=== PATIENT | male | born 1960 | race Caucasian/White ===

== ENCOUNTER 2018-12-19 10:43 | Inpatient (IN) | payer OTHER ==
[~2018-12-19] VITALS: Ht 180.3 cm; Wt 93.2 kg
[2018-12-19] MEDS ORDERED: normal saline 1000ML IV soln IVB ONE ×2 (11:20→12:15)
[2018-12-19 11:35] LABS: BASOPHILS % (AUTO) 0.3 % (0-1); HEMATOCRIT 51.3 % (42.0-52.0); HEMOGLOBIN 17.7 g/dl (14.0-17.9); LYMPHOCYTES # (AUTO) 0.4 X10'3 (1.1-4.8); LYMPHOCYTES % (AUTO) 7.3 % (21-51); MEAN CORPUSCULAR HEMOGLOBIN 31.4 PG (27.0-31.0); MEAN CORPUSCULAR HGB CONC 34.6 g/dL (33.0-36.5); MEAN CORPUSCULAR VOLUME 90.9 FL (78-98); MEAN PLATELET VOLUME 9.8 FL (7.4-10.4); MONOCYTES # (AUTO) 0.8 X10'3 (0-0.9); MONOCYTES % (AUTO) 16.1 % (2-12); NEUTROPHILS # (AUTO) 3.6 X10'3 (1.8-7.7); NEUTROPHILS % (AUTO) 75.3 % (42-75); PLATELET COUNT 227 X10'3 (140-440); RED BLOOD COUNT 5.64 X10'6 (4.70-6.10); RED CELL DISTRIBUTION WIDTH 13.4 % (11.5-14.5); WHITE BLOOD COUNT 4.8 X10'3 (4.5-11.0)
[2018-12-19] MEDS ORDERED: ondansetron/PF 4mg/2ml inj IV ONE (12:00)
[2018-12-19 12:05] LABS: ALANINE AMINOTRANSFERASE 65 U/L (12-78); ALBUMIN 3.3 G/DL (3.4-5.0); ALBUMIN/GLOBULIN RATIO 0.6 (1.1-1.5); ALKALINE PHOSPHATASE 109 IU/L (46-116); ANION GAP 14 (8-16); ASPARTATE AMINO TRANSFERASE 27 U/L (10-37); BILIRUBIN,TOTAL 0.6 MG/DL (0.1-1.0); BLOOD UREA NITROGEN 62 MG/DL (7-18); CALCIUM 9.4 MG/DL (8.5-10.1); CHLORIDE 91 MMOL/L (99-107); GLUCOSE 162 MG/DL (70-104); POTASSIUM 3.3 MMOL/L (3.5-5.1); SODIUM 134 MMOL/L (135-145); TOTAL CARBON DIOXIDE 28.7 MMOL/L (24-32); TOTAL PROTEIN 8.4 G/DL (6.4-8.2); eGFR 29 ML/MIN
[2018-12-19] MEDS ORDERED: potassium 10mEq/100ml NS w/LIDOcaine (10mg/bag) IV SCH (12:15)
[2018-12-19 12:27] LABS: TOTAL CELLS COUNTED 100
[2018-12-19 12:28] LABS: LARGE PLATELETS FEW; PLATELET ESTIMATE NORMAL
[2018-12-19 12:41] LABS: MAGNESIUM 2.2 MG/DL (1.5-2.4)
[2018-12-19] MEDS ORDERED: mag hydrox/Alum hydrox/simeth 30ml oral suspension PO PRN (12:50)
[2018-12-19] MEDS ORDERED: HYDROcodone/acetaminophen 5mg/325mg tablet PO PRN (12:50)
[2018-12-19] MEDS ORDERED: morphine 2 MG/ML inj. syringe IV PRN ×2 (12:50)
[2018-12-19] MEDS ORDERED: acetaminophen 325mg tablet PO PRN (12:50)
[2018-12-19] MEDS ORDERED: magnesium hydroxide 30ml (MOM) UD suspension PO PRN (12:50)
[2018-12-19] MEDS ORDERED: NO HOME MEDS (12:56)
[2018-12-19 13:26] LABS: CLARITY,URINE CLEAR (Clear); COLOR,URINE YELLOW (Yellow); GLUCOSE, URINE NEGATIVE (Neg); KETONES,URINE NEGATIVE (Neg); LEUKOCYTE ESTERASE ,URINE NEGATIVE (Neg); NITRITES, URINE NEGATIVE (Neg); OCCULT BLOOD,URINE NEGATIVE (Neg); PH,URINE 5.5 (4.8-8.0); PROTEIN,URINE NEGATIVE (Neg); UROBILINOGEN,URINE 0.2 E.U/dL (0.2-1.0)
[2018-12-19 13:30] LABS: UA COLLECTION TYPE CLN CATCH MIDSTREAM
[2018-12-19] MEDS: potassium Cl 10 mEq/100mL bag IV SCH ×2 (13:55→14:02)
[2018-12-19] MEDS: dextrose 5%-1/2 normal saline 1,000 ML IV SCH ×2 (14:03→22:14)
[2018-12-19 15:00] VITALS: BP 134/81
[2018-12-19] MEDS ORDERED: potassium Cl 10 mEq/100mL bag IV SCH (16:10)
[2018-12-19] MEDS ORDERED: normal saline 1000ml 1,000 ML IV ONE (17:00)
[2018-12-19 18:00] VITALS: BP 136/79
--- NOTE | 2018-12-19 18:00 | NUR ---
Patient in room [facility]. I have received report from JAYDEN Mackenzie and had the opportunity to ask questions and assume patient care.
--- NOTE | 2018-12-19 18:09 | NUR ---
Problems reprioritized. Patient report given, questions answered & plan of care reviewed with JAYDEN LATIF.
[2018-12-19] MEDS: diatr meglu/diatrizoate 30ml oral sol.-(3 dose) bottle PO SCH (21:57)
[2018-12-20] VITALS (16 sets, daily range): BP systolic 103–134; BP diastolic 65–87
[2018-12-20] MEDS: dextrose 5%-1/2 normal saline 1,000 ML IV SCH ×4 (04:13→23:34)
[2018-12-20 05:22] LABS: BASOPHILS % (AUTO) 0.5 % (0-1); EOSINOPHILS # (AUTO) 0.1 X10'3 (0-0.9); EOSINOPHILS % (AUTO) 2.5 % (0-6); HEMATOCRIT 45.7 % (42.0-52.0); HEMOGLOBIN 15.9 g/dl (14.0-17.9); LYMPHOCYTES # (AUTO) 0.5 X10'3 (1.1-4.8); LYMPHOCYTES % (AUTO) 15.1 % (21-51); MEAN CORPUSCULAR HEMOGLOBIN 31.9 PG (27.0-31.0); MEAN CORPUSCULAR HGB CONC 34.8 g/dL (33.0-36.5); MEAN CORPUSCULAR VOLUME 91.5 FL (78-98); MEAN PLATELET VOLUME 9.8 FL (7.4-10.4); MONOCYTES # (AUTO) 0.8 X10'3 (0-0.9); MONOCYTES % (AUTO) 21.7 % (2-12); NEUTROPHILS # (AUTO) 2.1 X10'3 (1.8-7.7); NEUTROPHILS % (AUTO) 60.2 % (42-75); PLATELET COUNT 191 X10'3 (140-440); RED BLOOD COUNT 4.99 X10'6 (4.70-6.10); RED CELL DISTRIBUTION WIDTH 13.5 % (11.5-14.5); WHITE BLOOD COUNT 3.5 X10'3 (4.5-11.0)
[2018-12-20 05:39] LABS: ALBUMIN 2.7 G/DL (3.4-5.0); ANION GAP 8 (8-16); BLOOD UREA NITROGEN 44 MG/DL (7-18); BUN/CREATININE RATIO 30.1 (5.4-32.0); CALCIUM 7.6 MG/DL (8.5-10.1); CHLORIDE 96 MMOL/L (99-107); CREATININE 1.46 MG/DL (0.60-1.10); GLUCOSE 192 MG/DL (70-104); SODIUM 136 MMOL/L (135-145); TOTAL CARBON DIOXIDE 32.3 MMOL/L (24-32); eGFR 49 ML/MIN
[2018-12-20 05:47] LABS: POTASSIUM 2.8 MMOL/L (3.5-5.1)
--- NOTE | 2018-12-20 05:53 | NUR ---
critical 2.[address] De Los Santos, replacement orders received
[2018-12-20] MEDS ORDERED: potassium Cl 20 mEq SR tablet PO PRN ×2 (05:55)
[2018-12-20] MEDS: potassium CL 10mEq/100ml bag 100 ML IV PRN ×5 (05:57→14:39)
--- NOTE | 2018-12-20 06:30 | NUR ---
Problems reprioritized. Patient report given, questions answered & plan of care reviewed with JAYDEN Peterson.
[2018-12-20] MEDS: diatr meglu/diatrizoate 30ml oral sol.-(3 dose) bottle PO SCH ×2 (07:03→10:19)
[2018-12-20 07:42] LABS: TOTAL CELLS COUNTED 100
[2018-12-20 07:44] LABS: PLATELET ESTIMATE NORMAL
[2018-12-20] MEDS ORDERED: ringers solution, lacted 1,000 ML IV ONE (12:02)
[2018-12-20] MEDS ORDERED: gentamicin 40 MG/1 ML inj ONE (13:35)
[2018-12-20] MEDS ORDERED: clindamycin phosphate 150mg/ml inj. ONE (13:35)
[2018-12-20] MEDS ORDERED: hydrALAZINE 20mg/ml inj. IV PRN (14:05)
[2018-12-20] MEDS ORDERED: labetalol 20mg/4ml (5mg/ml) syringe IV PRN (14:05)
[2018-12-20] MEDS ORDERED: ondansetron/PF 4mg/2ml inj IV PRN ×2 (14:05→19:05)
[2018-12-20] MEDS ORDERED: ringers solution, lacted 1,000 ML IV SCH (14:05)
[2018-12-20] MEDS ORDERED: fentaNYL/PF 50MCG/1 ML 2ML syringe IV PRN ×2 (14:05)
[2018-12-20] MEDS ORDERED: morphine 4 MG/ML inj SYRINge IV PRN (14:05)
[2018-12-20] MEDS ORDERED: fentaNYL /PF 50mcg/ml 5ml ampule ONE (15:43)
[2018-12-20] MEDS ORDERED: midazolam 2 mg/2 ml injection ONE (15:43)
[2018-12-20] MEDS ORDERED: propofol inj 20 ML IV ONE (15:46)
[2018-12-20] MEDS ORDERED: LIDOcaine 2% (20mg/ml) 5ml vial ONE (15:46)
[2018-12-20] MEDS ORDERED: rocuronium 10mg/ml inj IV ONE ×3 (15:46→18:22)
[2018-12-20] MEDS ORDERED: succinylcholine 20mg/ml inj IV ONE (15:46)
[2018-12-20] MEDS ORDERED: sevoflurane 250ml liquid IH ONE (15:49)
[2018-12-20] MEDS ORDERED: ceFOXitin 2 GM ADDVANTGE BAG 50 ML IV ONE (15:51)
[2018-12-20] MEDS ORDERED: dexamethasone sod phosphate 4mg/ml inj. ONE (16:05)
[2018-12-20] MEDS ORDERED: ondansetron/PF 4mg/2ml inj ONE (16:07)
[2018-12-20] MEDS ORDERED: sugammadex 200mg/2ml injection IV ONE (16:37)
--- NOTE | 2018-12-20 18:19 | NUR ---
Problems reprioritized. Patient report given, questions answered & plan of care reviewed with BHAVYA CARPENTER.
--- NOTE | 2018-12-20 18:46 | NUR ---
Received from OR via BED, accompanied by Anesthesiologist DR ESCALANTE and report given by Anesthesiologist. PT DROWSY, DENIES PAIN, ABOMEN W/LARGE ABD PADS COVERING INCISION AND DRSG, CDI, CHOWDHURY CATHETER TO GRAVITY DRAINAGE W/DARK URINE IN DRAINAGE BAG. Addendum: 12/20/18 at 1926 by Maribel Gallegos RN Amended: Links added.
--- NOTE | 2018-12-20 18:54 | NUR ---
Patient in room [facility]. I have received report from JAYDEN Peterson and had the opportunity to ask questions and assume patient care.
[2018-12-20] MEDS ORDERED: naloxone 0.4 mg/ml inj IV PRN (19:05)
[2018-12-20] MEDS ORDERED: CADD PCA waste documentation MC PRN (19:05)
[2018-12-20] MEDS ORDERED: HYDROmorphone/NS 1 mg/ml CADD 50 ML IV SCH (19:05)
[2018-12-20 19:06] LABS: ISTAT CREATININE 1.6 mg/dL (0.8-1.3); ISTAT IONIZED CALCIUM 0.95 mmol/L (1.03-1.32); ISTAT K 3.8 mmol/L (3.5-5.1); POC BUN/CREATININE RATIO 20.6 (5.4-32.0)
[2018-12-20] MEDS: morphine 4 MG/ML inj SYRINge IV PRN ×2 (19:07→19:28)
[2018-12-20] MEDS ORDERED: glucagon, human recombinant 1mg kit SUBCUT PRN (19:10)
[2018-12-20] MEDS ORDERED: dextrose ORAL solution 15 GM/59 ML bottle PO PRN ×2 (19:10)
[2018-12-20] MEDS ORDERED: insulin Lispro (HumaLOG) vial - multi-dose SQ SCH (19:10)
[2018-12-20] MEDS ORDERED: MESSAGE TO PHARMACY PO ONE (19:10)
[2018-12-20] MEDS ORDERED: albuterol 2.5 MG/3 ML nebule NEB PRN (19:10)
[2018-12-20] MEDS ORDERED: dextrose 50%-water 50ml dispensing syringe IV PRN ×2 (19:10)
[2018-12-20] MEDS ORDERED: albuterol 2.5 MG/3 ML nebule ONE (19:16)
[2018-12-20] MEDS: HYDROmorphone/NS 1 mg/ml CADD 50 ML IV SCH ×2 (19:38→23:00)
--- NOTE | 2018-12-20 19:40 | NUR ---
REPORT CALLED BY RECOVERY ROOM AND PT BROUGHT BACK TO UNIT, ANIA CHOUDHURY LIGHT IN REACH, IN NO APPARENT DISTRESS, 2X RAILS UP, WILL CONTINUE TO MONITOR
--- NOTE | 2018-12-20 19:46 | NUR ---
Report called to receiving nurse. Transferred PT IN STABLE CONDITION, PAIN IMPROVED via BED, NO Belongings, RECEIVING RN AT BEDSIDE TO RECEIVE PT, BLL, CALL LIGHT GIVEN, SIDE RAILS UP X 2. Special Issues communicated to receiving nurse. YES. Addendum: 12/20/18 at 8 by Maribel Gallegos RN Amended: Links added.
[2018-12-20 20:44] LABS: HEMOGLOBIN A1C 6.3 % (4.5-6.2)
[2018-12-20] MEDS: insulin glargine (Lantus) pen - multi-dose SQ SCH (21:00)
[2018-12-21] VITALS: BP 103/75
[2018-12-21] MEDS: ceFOXitin 1 GM/D5W 50mL IVPB 50 ML IV SCH ×2 (00:51→08:06)
[2018-12-21] MEDS: HYDROmorphone/NS 1 mg/ml CADD 50 ML IV SCH ×12 (01:00→23:00)
[2018-12-21 06:05] LABS: BASOPHILS % (AUTO) 0.1 % (0-1); EOSINOPHILS % (AUTO) 0 % (0-6); HEMATOCRIT 43.2 % (42.0-52.0); LYMPHOCYTES # (AUTO) 0.3 X10'3 (1.1-4.8); LYMPHOCYTES % (AUTO) 3.7 % (21-51); MEAN CORPUSCULAR HEMOGLOBIN 31.8 PG (27.0-31.0); MEAN CORPUSCULAR HGB CONC 34.6 g/dL (33.0-36.5); MONOCYTES % (AUTO) 10.5 % (2-12); NEUTROPHILS % (AUTO) 85.7 % (42-75); PLATELET COUNT 166 X10'3 (140-440); RED CELL DISTRIBUTION WIDTH 13.6 % (11.5-14.5); WHITE BLOOD COUNT 9.3 X10'3 (4.5-11.0)
[2018-12-21] MEDS: dextrose 5%-1/2 normal saline 1,000 ML IV SCH (06:14)
--- NOTE | 2018-12-21 06:30 | NUR ---
Problems reprioritized. Patient report given, questions answered & plan of care reviewed with JAYDEN Vergara.
[2018-12-21 06:33] LABS: ANION GAP 7 (8-16); BLOOD UREA NITROGEN 32 MG/DL (7-18); BUN/CREATININE RATIO 21.8 (5.4-32.0); CALCIUM 7.1 MG/DL (8.5-10.1); CHLORIDE 99 MMOL/L (99-107); CREATININE 1.47 MG/DL (0.60-1.10); GLUCOSE 218 MG/DL (70-104); POTASSIUM 3.8 MMOL/L (3.5-5.1); SODIUM 135 MMOL/L (135-145); TOTAL CARBON DIOXIDE 28.9 MMOL/L (24-32); eGFR 49 ML/MIN
[2018-12-21 07:15] VITALS: BP 115/70
[2018-12-21 11:00] VITALS: BP 110/72
[2018-12-21] MEDS: normal saline 1000ml 1,000 ML IV SCH (13:07)
--- NOTE | 2018-12-21 13:26 | NUR ---
REMOVED CHOWDHURY CATHETER. PATIENT HAD SCANT AMOUNT OF URINE AFTER. WILL CONTINUE TO MONITOR URINE OUTPUT.
[2018-12-21 18:00] VITALS: BP 112/68
--- NOTE | 2018-12-21 18:20 | NUR ---
Patient in room [facility]. I have received report from JAYDEN Vergara and had the opportunity to ask questions and assume patient care.
--- NOTE | 2018-12-21 18:23 | NUR ---
Problems reprioritized. Patient report given, questions answered & plan of care reviewed with JAYDEN Martell.
[2018-12-21] MEDS: enoxaparin 100mg/ml syringe SUBCUT SCH (19:19)
[2018-12-21] MEDS: insulin glargine (Lantus) pen - multi-dose SQ SCH (20:57)
[2018-12-22] VITALS: BP 103/74
[2018-12-22] MEDS: HYDROmorphone/NS 1 mg/ml CADD 50 ML IV SCH ×11 (01:00→23:00)
[2018-12-22] MEDS: normal saline 1000ml 1,000 ML IV SCH ×2 (01:35→16:07)
[2018-12-22 06:21] LABS: BASOPHILS % (AUTO) 0.1 % (0-1); EOSINOPHILS # (AUTO) 0.1 X10'3 (0-0.9); EOSINOPHILS % (AUTO) 1.1 % (0-6); HEMATOCRIT 39.6 % (42.0-52.0); HEMOGLOBIN 13.6 g/dl (14.0-17.9); LYMPHOCYTES # (AUTO) 0.7 X10'3 (1.1-4.8); LYMPHOCYTES % (AUTO) 7.1 % (21-51); MEAN CORPUSCULAR HEMOGLOBIN 31.8 PG (27.0-31.0); MEAN CORPUSCULAR HGB CONC 34.3 g/dL (33.0-36.5); MEAN CORPUSCULAR VOLUME 92.7 FL (78-98); MEAN PLATELET VOLUME 9.8 FL (7.4-10.4); MONOCYTES # (AUTO) 1.2 X10'3 (0-0.9); MONOCYTES % (AUTO) 12.6 % (2-12); NEUTROPHILS # (AUTO) 7.4 X10'3 (1.8-7.7); NEUTROPHILS % (AUTO) 79.1 % (42-75); PLATELET COUNT 165 X10'3 (140-440); RED BLOOD COUNT 4.27 X10'6 (4.70-6.10); RED CELL DISTRIBUTION WIDTH 13.3 % (11.5-14.5); WHITE BLOOD COUNT 9.3 X10'3 (4.5-11.0)
[2018-12-22 06:30] LABS: ALBUMIN 1.9 G/DL (3.4-5.0); ANION GAP 3 (8-16); BLOOD UREA NITROGEN 24 MG/DL (7-18); BUN/CREATININE RATIO 18.9 (5.4-32.0); CALCIUM 7.8 MG/DL (8.5-10.1); CHLORIDE 102 MMOL/L (99-107); CREATININE 1.27 MG/DL (0.60-1.10); GLUCOSE 106 MG/DL (70-104); POTASSIUM 3.2 MMOL/L (3.5-5.1); SODIUM 139 MMOL/L (135-145); TOTAL CARBON DIOXIDE 34.3 MMOL/L (24-32); eGFR 58 ML/MIN
--- NOTE | 2018-12-22 06:49 | NUR ---
Problems reprioritized. Patient report given, questions answered & plan of care reviewed with JAYDEN Loyola.
[2018-12-22 07:00] VITALS: BP 112/72
[2018-12-22] MEDS: enoxaparin 100mg/ml syringe SUBCUT SCH ×2 (08:00→20:46)
[2018-12-22] MEDS: potassium CL 10mEq/100ml bag 100 ML IV PRN ×4 (10:15→15:01)
[2018-12-22 11:00] VITALS: BP 105/68
[2018-12-22] MEDS: ondansetron/PF 4mg/2ml inj IV PRN (13:48)
--- NOTE | 2018-12-22 18:51 | NUR ---
Problems reprioritized. Patient report given, questions answered & plan of care reviewed with Yanira RN.
[2018-12-22 19:30] VITALS: BP 112/67
[2018-12-22] MEDS: insulin glargine (Lantus) pen - multi-dose SQ SCH (21:00)
[2018-12-23] VITALS: BP 106/67
[2018-12-23] MEDS: normal saline 1000ml 1,000 ML IV SCH ×3 (00:33→16:58)
[2018-12-23] MEDS: HYDROmorphone/NS 1 mg/ml CADD 50 ML IV SCH ×12 (01:00→23:00)
[2018-12-23 06:28] LABS: BASOPHILS % (AUTO) 0.2 % (0-1); EOSINOPHILS # (AUTO) 0.1 X10'3 (0-0.9); EOSINOPHILS % (AUTO) 1.1 % (0-6); HEMATOCRIT 38.8 % (42.0-52.0); HEMOGLOBIN 13.2 g/dl (14.0-17.9); LYMPHOCYTES # (AUTO) 0.6 X10'3 (1.1-4.8); LYMPHOCYTES % (AUTO) 6.7 % (21-51); MEAN CORPUSCULAR HEMOGLOBIN 31.4 PG (27.0-31.0); MEAN CORPUSCULAR HGB CONC 34.1 g/dL (33.0-36.5); MEAN CORPUSCULAR VOLUME 92.1 FL (78-98); MEAN PLATELET VOLUME 10.1 FL (7.4-10.4); MONOCYTES % (AUTO) 10.2 % (2-12); NEUTROPHILS # (AUTO) 7.9 X10'3 (1.8-7.7); NEUTROPHILS % (AUTO) 81.8 % (42-75); PLATELET COUNT 203 X10'3 (140-440); RED BLOOD COUNT 4.22 X10'6 (4.70-6.10); RED CELL DISTRIBUTION WIDTH 13.4 % (11.5-14.5); WHITE BLOOD COUNT 9.6 X10'3 (4.5-11.0)
[2018-12-23 06:29] LABS: ALBUMIN 1.9 G/DL (3.4-5.0); ANION GAP 7 (8-16); BLOOD UREA NITROGEN 21 MG/DL (7-18); BUN/CREATININE RATIO 18.8 (5.4-32.0); CALCIUM 8.2 MG/DL (8.5-10.1); CHLORIDE 101 MMOL/L (99-107); CREATININE 1.12 MG/DL (0.60-1.10); GLUCOSE 95 MG/DL (70-104); SODIUM 145 MMOL/L (135-145); TOTAL CARBON DIOXIDE 37.4 MMOL/L (24-32); eGFR 67 ML/MIN
--- NOTE | 2018-12-23 06:52 | NUR ---
Patient in room [facility]. I have received report from Pat RN and had the opportunity to ask questions and assume patient care.
[2018-12-23 07:00] VITALS: BP 118/66
--- NOTE | 2018-12-23 07:06 | NUR ---
Received critical lab value K of 3.0, paged Dr. Hanson
--- NOTE | 2018-12-23 07:08 | NUR ---
Order received from Dr. Hanson to start K and Mg replacement protocol
[2018-12-23] MEDS ORDERED: potassium Cl 20 mEq SR tablet PO PRN ×2 (07:10)
[2018-12-23] MEDS ORDERED: magnesium Cl slow-release 64mg tablet PO PRN (07:10)
[2018-12-23] MEDS ORDERED: magnesium 4gm in 100ml NS 100 ML IV PRN (07:10)
[2018-12-23] MEDS ORDERED: magnesium 2GM in 50ml NS 50 ML IV PRN (07:10)
[2018-12-23] MEDS: enoxaparin 100mg/ml syringe SUBCUT SCH ×2 (07:56→20:13)
[2018-12-23] MEDS: potassium CL 10mEq/100ml bag 100 ML IV PRN ×9 (07:57→23:31)
[2018-12-23 11:00] VITALS: BP 117/58
--- NOTE | 2018-12-23 18:51 | NUR ---
Problems reprioritized. Patient report given, questions answered & plan of care reviewed with Kathy Simon RN.
[2018-12-23 20:00] VITALS: BP 118/69
[2018-12-23] MEDS: insulin glargine (Lantus) pen - multi-dose SQ SCH (21:00)
[2018-12-24] VITALS: BP 120/66
[2018-12-24] MEDS: potassium CL 10mEq/100ml bag 100 ML IV PRN ×3 (00:49→03:01)
[2018-12-24] MEDS: HYDROmorphone/NS 1 mg/ml CADD 50 ML IV SCH ×12 (01:00→23:00)
[2018-12-24] MEDS: normal saline 1000ml 1,000 ML IV SCH ×4 (01:06→23:02)
[2018-12-24 05:31] LABS: ALBUMIN 2.1 G/DL (3.4-5.0); ANION GAP 8 (8-16); BLOOD UREA NITROGEN 20 MG/DL (7-18); BUN/CREATININE RATIO 16.4 (5.4-32.0); CALCIUM 8.6 MG/DL (8.5-10.1); CHLORIDE 102 MMOL/L (99-107); CREATININE 1.22 MG/DL (0.60-1.10); GLUCOSE 99 MG/DL (70-104); POTASSIUM 3.6 MMOL/L (3.5-5.1); SODIUM 149 MMOL/L (135-145); TOTAL CARBON DIOXIDE 39.2 MMOL/L (24-32); eGFR 61 ML/MIN
[2018-12-24 05:36] LABS: BASOPHILS % (AUTO) 0.3 % (0-1); EOSINOPHILS # (AUTO) 0.2 X10'3 (0-0.9); EOSINOPHILS % (AUTO) 1.6 % (0-6); HEMATOCRIT 42.2 % (42.0-52.0); HEMOGLOBIN 14.4 g/dl (14.0-17.9); LYMPHOCYTES # (AUTO) 0.8 X10'3 (1.1-4.8); LYMPHOCYTES % (AUTO) 6.9 % (21-51); MEAN CORPUSCULAR HEMOGLOBIN 31.2 PG (27.0-31.0); MEAN CORPUSCULAR HGB CONC 34.2 g/dL (33.0-36.5); MEAN CORPUSCULAR VOLUME 91.2 FL (78-98); MEAN PLATELET VOLUME 9.4 FL (7.4-10.4); MONOCYTES # (AUTO) 1.1 X10'3 (0-0.9); MONOCYTES % (AUTO) 9.4 % (2-12); NEUTROPHILS # (AUTO) 9.3 X10'3 (1.8-7.7); NEUTROPHILS % (AUTO) 81.8 % (42-75); PLATELET COUNT 248 X10'3 (140-440); RED BLOOD COUNT 4.62 X10'6 (4.70-6.10); RED CELL DISTRIBUTION WIDTH 13.5 % (11.5-14.5); WHITE BLOOD COUNT 11.4 X10'3 (4.5-11.0)
--- NOTE | 2018-12-24 06:39 | NUR ---
Problems reprioritized. Patient report given, questions answered & plan of care reviewed with JAYDEN Black.
--- NOTE | 2018-12-24 06:39 | NUR ---
Problems reprioritized. Patient report given, questions answered & plan of care reviewed with Celso RN's.
[2018-12-24 07:28] VITALS: BP 132/71
[2018-12-24 07:54] LABS: PLATELET ESTIMATE NORMAL; TOTAL CELLS COUNTED 100; TOXIC GRANULATION 1+
[2018-12-24] MEDS: enoxaparin 60mg/0.6ml syringe SUBCUT SCH ×2 (09:54→20:02)
[2018-12-24] MEDS: enoxaparin 30mg/0.3ml syringe SUBCUT SCH ×2 (09:55→20:03)
[2018-12-24 11:00] VITALS: BP 126/79
--- NOTE | 2018-12-24 16:30 | NUR ---
Problems reprioritized. Patient report given, questions answered & plan of care reviewed with JAYDEN Chavez.
--- NOTE | 2018-12-24 16:35 | NUR ---
Initial: Pt admit w/ abdominal pain and distention hx significant diarrhea 6-7 days prior to admit followed by unable to tolerate any PO r/t N/V 2-3 days prior to admit. DX complete SBO s/p ex lap w/ small bowel resection found to have thick small bowel mesentery causing probable ischemia to small bowel segment per MD note. Pt currently on ice chips and popsicles w/ small amount of gas and persistent ileus post-op per MD note. Pt essentially NPO 8 days including inability to tolerate PO prior to admit and would benefit from PN at this time to meet nutrition needs; recs below. Consider PN per MD note w/ no consult or central line at this time. L NG in place -2L output for 2 days and -1L output past 24 hours noted. PATRICIA d/w RN regarding promotility and opioid antagonist post-op per MD approval. TPN recs below for pt needs. IF continues to remain NPO without nutrition will meet severe malnutrition criteria at that time. Will continue to monitor. Rec: 1. IF TPN per MD via central line; Clinimix E 5/15 at 105ml/hr goal. Initiate at 30ml/hr and if tolerated advance Q12 to goal. 2. IF TPN; separate lipid infusions to run 12 hours daily using 120ml 20% intralipids at 10ml/hr. In total; to provide 126g AA, 378g DEX (2.82mg/kg/min), and 1525 total non-protein kcals. 3. IF TPN; PALB Q /, daily wts 4. advance diet as medically indicate to low-residue 5. IF PO; MVI for wound healing needs Addendum: 12/24/18 at [address] Amended: Links added.
--- NOTE | 2018-12-24 19:57 | NUR ---
Dr Clay notified of 125 mL output after clamped NG for 5 hours. Advised flushed to attempt more drainage. No success. Patient a little nauseated. Had two BM's today, 1 large, 1 small. Obed states to clamp NG, place on clears, reattach NG to suction in AM, and call him with results.
[2018-12-24 20:00] VITALS: BP 126/78
[2018-12-24] MEDS: insulin glargine (Lantus) pen - multi-dose SQ SCH (21:00)
[2018-12-24] MEDS: piperacillin/tazo 3.375gm/50ml 50 ML IV SCH (23:19)
[2018-12-25] VITALS: BP 125/80
[2018-12-25] MEDS: HYDROmorphone/NS 1 mg/ml CADD 50 ML IV SCH ×5 (01:00→09:00)
[2018-12-25] MEDS: normal saline 1000ml 1,000 ML IV SCH ×4 (03:36→23:02)
[2018-12-25 05:26] LABS: BASOPHILS % (AUTO) 0.3 % (0-1); EOSINOPHILS # (AUTO) 0.1 X10'3 (0-0.9); EOSINOPHILS % (AUTO) 1.1 % (0-6); HEMATOCRIT 44.5 % (42.0-52.0); HEMOGLOBIN 15.2 g/dl (14.0-17.9); LYMPHOCYTES # (AUTO) 1.1 X10'3 (1.1-4.8); LYMPHOCYTES % (AUTO) 8.5 % (21-51); MEAN CORPUSCULAR HEMOGLOBIN 31.3 PG (27.0-31.0); MEAN CORPUSCULAR HGB CONC 34.1 g/dL (33.0-36.5); MEAN CORPUSCULAR VOLUME 91.9 FL (78-98); MEAN PLATELET VOLUME 9.5 FL (7.4-10.4); MONOCYTES % (AUTO) 8.1 % (2-12); NEUTROPHILS # (AUTO) 10.5 X10'3 (1.8-7.7); PLATELET COUNT 299 X10'3 (140-440); RED BLOOD COUNT 4.84 X10'6 (4.70-6.10); RED CELL DISTRIBUTION WIDTH 13.7 % (11.5-14.5); WHITE BLOOD COUNT 12.8 X10'3 (4.5-11.0)
[2018-12-25 05:34] LABS: ALANINE AMINOTRANSFERASE 38 U/L (12-78); ALBUMIN 2.2 G/DL (3.4-5.0); ALBUMIN/GLOBULIN RATIO 0.5 (1.1-1.5); ANION GAP 7 (8-16); ASPARTATE AMINO TRANSFERASE 29 U/L (10-37); BILIRUBIN,TOTAL 0.4 MG/DL (0.1-1.0); BLOOD UREA NITROGEN 20 MG/DL (7-18); CALCIUM 8.5 MG/DL (8.5-10.1); CHLORIDE 100 MMOL/L (99-107); CREATININE 1.25 MG/DL (0.60-1.10); GLUCOSE 114 MG/DL (70-104); PHOSPHORUS 3.2 MG/DL (2.3-4.5); SODIUM 145 MMOL/L (135-145); TOTAL CARBON DIOXIDE 38.1 MMOL/L (24-32); TOTAL PROTEIN 6.8 G/DL (6.4-8.2); eGFR 59 ML/MIN
[2018-12-25 05:40] LABS: ALKALINE PHOSPHATASE 87 IU/L (46-116)
[2018-12-25 05:47] LABS: POTASSIUM 2.8 MMOL/L (3.5-5.1)
--- NOTE | 2018-12-25 06:48 | NUR ---
Problems reprioritized. Patient report given, questions answered & plan of care reviewed with JAYDEN Nagel.
[2018-12-25 07:00] VITALS: BP 124/77
--- NOTE | 2018-12-25 07:17 | NUR ---
Patient in room [facility]. I have received report from ROSE CARPENTER and had the opportunity to ask questions and assume patient care.
[2018-12-25] MEDS: piperacillin/tazo 3.375gm/50ml 50 ML IV SCH ×2 (08:58→16:42)
[2018-12-25] MEDS: enoxaparin 60mg/0.6ml syringe SUBCUT SCH ×2 (08:59→20:23)
[2018-12-25] MEDS: enoxaparin 30mg/0.3ml syringe SUBCUT SCH ×2 (08:59→20:24)
[2018-12-25] MEDS: potassium Cl 40MEQ/NS 500ml 500 ML IV SCH ×2 (10:29→16:42)
[2018-12-25 11:00] VITALS: BP 114/73
--- NOTE | 2018-12-25 18:00 | NUR ---
patient states he feels distended abdomen appears distended, patient reconnected to NG
[2018-12-25] MEDS: ondansetron/PF 4mg/2ml inj IV PRN (18:01)
--- NOTE | 2018-12-25 19:07 | NUR ---
patient NG output for [place] was 1600mls greenish fluid. patient was seen by Dr Clay, order given for CTA of abdomen in AM. Clear lqd diet DC patient allowed icechips only. patient voided in BR, with small BM. Bladder scanned 76mls observed. Report given to Pat. CARPENTER
[2018-12-25 19:30] VITALS: BP 124/77
[2018-12-25] MEDS: insulin glargine (Lantus) pen - multi-dose SQ SCH (20:25)
[2018-12-25] MEDS ORDERED: diatrozoate meglu/diatrozoate sod (37% iodine) 120ML oral solution PO SCH (22:15)
[2018-12-25] MEDS: diatr meglu/diatrizoate 30ml oral sol.-(3 dose) bottle PO SCH (22:39)
[2018-12-26] VITALS: BP 130/75
[2018-12-26] MEDS: piperacillin/tazo 3.375gm/50ml 50 ML IV SCH ×4 (01:41→23:56)
[2018-12-26 05:04] LABS: BASOPHILS % (AUTO) 0.2 % (0-1); EOSINOPHILS # (AUTO) 0.2 X10'3 (0-0.9); EOSINOPHILS % (AUTO) 1.4 % (0-6); HEMATOCRIT 41.6 % (42.0-52.0); HEMOGLOBIN 14.1 g/dl (14.0-17.9); LYMPHOCYTES # (AUTO) 1.1 X10'3 (1.1-4.8); LYMPHOCYTES % (AUTO) 9.6 % (21-51); MEAN CORPUSCULAR HEMOGLOBIN 30.8 PG (27.0-31.0); MEAN CORPUSCULAR HGB CONC 33.9 g/dL (33.0-36.5); MEAN CORPUSCULAR VOLUME 90.8 FL (78-98); MEAN PLATELET VOLUME 9.1 FL (7.4-10.4); MONOCYTES % (AUTO) 8.6 % (2-12); NEUTROPHILS # (AUTO) 8.9 X10'3 (1.8-7.7); NEUTROPHILS % (AUTO) 80.2 % (42-75); PLATELET COUNT 260 X10'3 (140-440); RED BLOOD COUNT 4.58 X10'6 (4.70-6.10); RED CELL DISTRIBUTION WIDTH 13.9 % (11.5-14.5); WHITE BLOOD COUNT 11.1 X10'3 (4.5-11.0)
[2018-12-26 05:10] LABS: ALANINE AMINOTRANSFERASE 46 U/L (12-78); ALBUMIN/GLOBULIN RATIO 0.5 (1.1-1.5); ALKALINE PHOSPHATASE 75 IU/L (46-116); ANION GAP 7 (8-16); ASPARTATE AMINO TRANSFERASE 33 U/L (10-37); BILIRUBIN,TOTAL 0.3 MG/DL (0.1-1.0); BLOOD UREA NITROGEN 20 MG/DL (7-18); BUN/CREATININE RATIO 15.3 (5.4-32.0); CHLORIDE 108 MMOL/L (99-107); CREATININE 1.31 MG/DL (0.60-1.10); GLUCOSE 110 MG/DL (70-104); MAGNESIUM 2.1 MG/DL (1.5-2.4); PHOSPHORUS 4.5 MG/DL (2.3-4.5); POTASSIUM 3.1 MMOL/L (3.5-5.1); SODIUM 152 MMOL/L (135-145); TOTAL CARBON DIOXIDE 36.6 MMOL/L (24-32); TOTAL PROTEIN 5.8 G/DL (6.4-8.2); eGFR 56 ML/MIN
[2018-12-26] MEDS: potassium CL 10mEq/100ml bag 100 ML IV PRN ×4 (05:46→11:20)
[2018-12-26 07:00] VITALS: BP 120/70
--- NOTE | 2018-12-26 07:00 | NUR ---
Patient in room [facility]. I have received report from PAT RN and had the opportunity to ask questions and assume patient care.
[2018-12-26] MEDS: normal saline 1000ml 1,000 ML IV SCH (07:02)
[2018-12-26] MEDS: diatr meglu/diatrizoate 30ml oral sol.-(3 dose) bottle PO SCH ×2 (07:26→10:36)
[2018-12-26] MEDS: enoxaparin 60mg/0.6ml syringe SUBCUT SCH ×2 (07:27→20:08)
[2018-12-26] MEDS: enoxaparin 30mg/0.3ml syringe SUBCUT SCH ×2 (07:34→20:09)
[2018-12-26] MEDS ORDERED: iohexol 300mg/ml 100ml inj. ONE (11:49)
[2018-12-26 12:42] VITALS: BP 106/74
[2018-12-26] MEDS ORDERED: sodium chloride 0.45% 1,000 ML IV SCH (13:40)
--- NOTE | 2018-12-26 16:37 | NUR ---
Reassessment: Spoke with bedside RN who reprots that per surgeon patient is okay to have sips, ice chips, and popsicles; NG tube removed; patient was able to have significant bowel movement today; no TPN at this time as surgeon would like to try advancing diet slowly as tolerated. Have not been able to meet nutrition needs for one week. Patient may still benefit from TPN while pending diet advancement. TPN recommendations are below if he is to have TPN, d/w bedside RN. Patient is s/p exploratory lap with small bowel resection found to have thick small bowel mesentery causing probable ischemia to small bowel segment per MD note. Pt currently on ice chips and popsicles. IF continues to remain NPO without nutrition, pt at risk for malnutrition. Noted that patient's sodium is increasing, is receiving normal saline, patient may benefit from dextrose with NS d/t hypernatremia, notified MD. Will continue to monitor. Rec: 1. IF TPN, would recommend Clinimix E 5/15 at 105ml/hr goal. If TPN, initiate at 30ml/hr and if tolerated advance Q12 to goal. 2. IF TPN; separate lipid infusions to run 12 hours daily using 120ml 20% intralipids at 10ml/hr. In total; to provide 126g AA, 378g DEX (2.82mg/kg/min), and 1525 total non-protein kcals. 3. IF TPN; PALB Q /, daily wts 4. advance diet as medically indicate to low-residue 5. IF PO; MVI for wound healing needs 6. May benefit from IV dextrose in view of elevated sodium Addendum: 12/26/18 at [address] Amended: Links added.
--- NOTE | 2018-12-26 16:39 | NUR ---
Student documentation: I have reviewed all interventions, assessments performed and documented by .
[2018-12-26 18:00] VITALS: BP 100/61
[2018-12-26] MEDS: dextrose 5%-1/4 normal saline 1,000 ML IV SCH (18:42)
--- NOTE | 2018-12-26 18:46 | NUR ---
Patient seen by MONICA Olmedo removed.Patient started on sips and chips, and popsicles. No nausea reported.patient went for CT abdomen and pelvis .see report. had BMX@ today. Problems reprioritized. Patient report given, questions answered & plan of care reviewed with Gurjit CARPENTER.
--- NOTE | 2018-12-26 18:48 | NUR ---
Patient in room [facility] 349B. I have received report from JAYDEN Nagel and had the opportunity to ask questions and assume patient care. Pt denies CP, n/v, dizziness, and rated pain 4/10 but declined pain medication.
[2018-12-26] MEDS: insulin glargine (Lantus) pen - multi-dose SQ SCH (21:00)
--- NOTE | 2018-12-26 21:58 | NUR ---
Pt stated that he does not have DM2. Blood sugar and medication not needed
[2018-12-27] VITALS: BP 98/63
--- NOTE | 2018-12-27 00:30 | NUR ---
Attempted to change dressing, but patient declined. Pt stated that he wants to sleep and not be disturbed. Will try again later
[2018-12-27] MEDS: dextrose 5%-1/4 normal saline 1,000 ML IV SCH ×2 (03:29→15:20)
[2018-12-27 05:21] LABS: EOSINOPHILS # (AUTO) 0.2 X10'3 (0-0.9); LYMPHOCYTES # (AUTO) 1.1 X10'3 (1.1-4.8); NEUTROPHILS # (AUTO) 9.1 X10'3 (1.8-7.7); RED BLOOD COUNT 4.29 X10'6 (4.70-6.10)
[2018-12-27 05:27] LABS: BASOPHILS % (AUTO) 0.3 % (0-1); EOSINOPHILS % (AUTO) 1.8 % (0-6); HEMATOCRIT 39.3 % (42.0-52.0); HEMOGLOBIN 13.3 g/dl (14.0-17.9); LYMPHOCYTES % (AUTO) 10.2 % (21-51); MEAN CORPUSCULAR HGB CONC 33.8 g/dL (33.0-36.5); MEAN CORPUSCULAR VOLUME 91.7 FL (78-98); MEAN PLATELET VOLUME 9.5 FL (7.4-10.4); MONOCYTES # (AUTO) 0.7 X10'3 (0-0.9); MONOCYTES % (AUTO) 5.9 % (2-12); NEUTROPHILS % (AUTO) 81.8 % (42-75); PLATELET COUNT 228 X10'3 (140-440); RED CELL DISTRIBUTION WIDTH 13.7 % (11.5-14.5); WHITE BLOOD COUNT 11.1 X10'3 (4.5-11.0)
[2018-12-27 05:38] LABS: ALANINE AMINOTRANSFERASE 47 U/L (12-78); ALBUMIN 1.8 G/DL (3.4-5.0); ALBUMIN/GLOBULIN RATIO 0.5 (1.1-1.5); ALKALINE PHOSPHATASE 68 IU/L (46-116); ANION GAP 8 (8-16); ASPARTATE AMINO TRANSFERASE 32 U/L (10-37); BILIRUBIN,TOTAL 0.2 MG/DL (0.1-1.0); BLOOD UREA NITROGEN 15 MG/DL (7-18); BUN/CREATININE RATIO 11.4 (5.4-32.0); CALCIUM 7.8 MG/DL (8.5-10.1); CHLORIDE 102 MMOL/L (99-107); CREATININE 1.32 MG/DL (0.60-1.10); GLUCOSE 167 MG/DL (70-104); MAGNESIUM 1.8 MG/DL (1.5-2.4); PHOSPHORUS 3.1 MG/DL (2.3-4.5); SODIUM 141 MMOL/L (135-145); TOTAL CARBON DIOXIDE 30.6 MMOL/L (24-32); TOTAL PROTEIN 5.3 G/DL (6.4-8.2); eGFR 55 ML/MIN
[2018-12-27 05:40] LABS: POTASSIUM 2.9 MMOL/L (3.5-5.1)
--- NOTE | 2018-12-27 05:53 | NUR ---
Page PAGER ID: [phone] MESSAGE: Andrew Diego, Room# 349B. Patient's potassium is 2.9. Could you please reinstate the potassium protocol (k-Dur) Thank you, Gurjit
[2018-12-27] MEDS ORDERED: magnesium 4gm in 100ml NS 100 ML IV PRN (05:55)
[2018-12-27] MEDS ORDERED: potassium CL 10mEq/100ml bag 100 ML IV PRN (05:55)
[2018-12-27] MEDS ORDERED: potassium Cl 20 mEq SR tablet PO PRN (05:55)
[2018-12-27] MEDS ORDERED: magnesium Cl slow-release 64mg tablet PO PRN (05:55)
[2018-12-27 06:31] LABS: PLATELET ESTIMATE NORMAL; TOTAL CELLS COUNTED 100
--- NOTE | 2018-12-27 06:31 | NUR ---
Problems reprioritized. Patient report given, questions answered & plan of care reviewed with JAYDEN Brewer. Patient's potassium results for this morning is 2.9.Called and reinstated the potassium protocoln on pt's Emar. .
--- NOTE | 2018-12-27 06:34 | NUR ---
Patient in room [facility]. I have received report from JAYDEN Cagle and had the opportunity to ask questions and assume patient care.
--- NOTE | 2018-12-27 06:38 | NUR ---
Patient in room [facility]. I have received report from JAYDEN Cagle and had the opportunity to ask questions and assume patient care.
[2018-12-27 07:50] VITALS: BP 130/62
[2018-12-27 07:51] VITALS: BP 103/66
[2018-12-27] MEDS: piperacillin/tazo 3.375gm/50ml 50 ML IV SCH ×2 (08:27→17:15)
[2018-12-27] MEDS: enoxaparin 30mg/0.3ml syringe SUBCUT SCH ×2 (08:28→21:21)
[2018-12-27] MEDS: potassium CL 10mEq/100ml bag 100 ML IV PRN (08:28)
[2018-12-27] MEDS: enoxaparin 60mg/0.6ml syringe SUBCUT SCH ×2 (08:29→21:20)
[2018-12-27 11:00] VITALS: BP 102/65
[2018-12-27] MEDS: potassium Cl 20 mEq SR tablet PO PRN ×3 (13:12→21:19)
--- NOTE | 2018-12-27 14:12 | NUR ---
follow up: Patient is now on clear liquids, sodium is WNL and is receiving 5% dextrose and normal saline. Will continue to follow. . Rec: 1. Advance diet as medically indicated to low fiber 1. IF TPN, would recommend Clinimix E 5/15 at 105ml/hr goal. If TPN, initiate at 30ml/hr and if tolerated advance Q12 to goal. 2. IF TPN; separate lipid infusions to run 12 hours daily using 120ml 20% intralipids at 10ml/hr. In total; to provide 126g AA, 378g DEX (2.82mg/kg/min), and 1525 total non-protein kcals. 3. IF TPN; PALB Q , daily wts 4. advance diet as medically indicate to low-residue 5. IF PO; MVI for wound healing needs Addendum: 12/27/18 at [address] Amended: Links added.
[2018-12-27 18:00] VITALS: BP 106/64
--- NOTE | 2018-12-27 18:15 | NUR ---
Patient in room [facility]. I have received report from Daniella CARPENTER and had the opportunity to ask questions and assume patient care.
--- NOTE | 2018-12-27 18:34 | NUR ---
Problems reprioritized. Patient report given, questions answered & plan of care reviewed with JAYDEN Mcdonnell.
--- NOTE | 2018-12-27 18:36 | NUR ---
Student documentation: I have reviewed and agree with all interventions, assessments performed and documented by SN Daphney.
[2018-12-27] MEDS: insulin glargine (Lantus) pen - multi-dose SQ SCH (21:00)
[2018-12-27] MEDS: lactobacillus rhamnosus 10,000 MMU CELLS/CAPSULE PO SCH (21:20)
[2018-12-28] VITALS: BP 105/72
[2018-12-28] MEDS: dextrose 5%-1/4 normal saline 1,000 ML IV SCH (00:07)
[2018-12-28] MEDS: piperacillin/tazo 3.375gm/50ml 50 ML IV SCH ×3 (00:08→16:57)
[2018-12-28 05:28] LABS: BASOPHILS # (AUTO) 0.1 X10'3 (0-0.2); BASOPHILS % (AUTO) 0.5 % (0-1); EOSINOPHILS # (AUTO) 0.1 X10'3 (0-0.9); EOSINOPHILS % (AUTO) 1.1 % (0-6); HEMATOCRIT 39.2 % (42.0-52.0); HEMOGLOBIN 13.2 g/dl (14.0-17.9); LYMPHOCYTES % (AUTO) 8.8 % (21-51); MEAN CORPUSCULAR HEMOGLOBIN 30.8 PG (27.0-31.0); MEAN CORPUSCULAR HGB CONC 33.6 g/dL (33.0-36.5); MEAN CORPUSCULAR VOLUME 91.6 FL (78-98); MEAN PLATELET VOLUME 9.5 FL (7.4-10.4); MONOCYTES # (AUTO) 0.7 X10'3 (0-0.9); NEUTROPHILS # (AUTO) 9.2 X10'3 (1.8-7.7); NEUTROPHILS % (AUTO) 83.6 % (42-75); PLATELET COUNT 235 X10'3 (140-440); RED BLOOD COUNT 4.28 X10'6 (4.70-6.10); RED CELL DISTRIBUTION WIDTH 13.5 % (11.5-14.5)
[2018-12-28 05:58] LABS: ALANINE AMINOTRANSFERASE 49 U/L (12-78); ALBUMIN/GLOBULIN RATIO 0.6 (1.1-1.5); ALKALINE PHOSPHATASE 69 IU/L (46-116); ANION GAP 7 (8-16); ASPARTATE AMINO TRANSFERASE 33 U/L (10-37); BILIRUBIN,TOTAL 0.3 MG/DL (0.1-1.0); BLOOD UREA NITROGEN 10 MG/DL (7-18); BUN/CREATININE RATIO 8.3 (5.4-32.0); CALCIUM 7.5 MG/DL (8.5-10.1); CHLORIDE 105 MMOL/L (99-107); CREATININE 1.21 MG/DL (0.60-1.10); GLUCOSE 115 MG/DL (70-104); MAGNESIUM 1.6 MG/DL (1.5-2.4); PHOSPHORUS 2.7 MG/DL (2.3-4.5); POTASSIUM 3.9 MMOL/L (3.5-5.1); SODIUM 139 MMOL/L (135-145); TOTAL CARBON DIOXIDE 26.9 MMOL/L (24-32); TOTAL PROTEIN 5.5 G/DL (6.4-8.2); eGFR 61 ML/MIN
--- NOTE | 2018-12-28 06:12 | NUR ---
Patient in room [facility]. I have received report from JAYDEN Mcdonnell and had the opportunity to ask questions and assume patient care.
--- NOTE | 2018-12-28 06:17 | NUR ---
Problems reprioritized. Patient report given, questions answered & plan of care reviewed with Daniella CARPENTER.
[2018-12-28 07:00] VITALS: BP 92/66
[2018-12-28] MEDS: enoxaparin 60mg/0.6ml syringe SUBCUT SCH (08:32)
[2018-12-28] MEDS: enoxaparin 30mg/0.3ml syringe SUBCUT SCH (08:32)
[2018-12-28] MEDS: lactobacillus rhamnosus 10,000 MMU CELLS/CAPSULE PO SCH ×2 (08:32→19:44)
[2018-12-28 11:00] VITALS: BP 89/55
[2018-12-28 18:00] VITALS: BP 106/61
--- NOTE | 2018-12-28 18:20 | NUR ---
Patient in room [facility]. I have received report from Daniella CARPENTER and had the opportunity to ask questions and assume patient care.
--- NOTE | 2018-12-28 18:35 | NUR ---
Problems reprioritized. Patient report given, questions answered & plan of care reviewed with JAYDEN Mcdonnell.
[2018-12-28] MEDS: apixaban 5mg tablet PO SCH (19:44)
[2018-12-28] MEDS: magnesium hydroxide 30ml (MOM) UD suspension PO SCH (19:44)
[2018-12-28] MEDS: insulin glargine (Lantus) pen - multi-dose SQ SCH (21:00)
[2018-12-29] VITALS: BP 113/68
[2018-12-29] MEDS: piperacillin/tazo 3.375gm/50ml 50 ML IV SCH ×2 (00:26→08:39)
[2018-12-29 05:27] LABS: BASOPHILS % (AUTO) 0.5 % (0-1); EOSINOPHILS # (AUTO) 0.1 X10'3 (0-0.9); EOSINOPHILS % (AUTO) 1.3 % (0-6); HEMATOCRIT 40.4 % (42.0-52.0); LYMPHOCYTES # (AUTO) 0.9 X10'3 (1.1-4.8); LYMPHOCYTES % (AUTO) 9.6 % (21-51); MEAN CORPUSCULAR HEMOGLOBIN 31.5 PG (27.0-31.0); MEAN CORPUSCULAR HGB CONC 34.6 g/dL (33.0-36.5); MEAN CORPUSCULAR VOLUME 91.1 FL (78-98); MEAN PLATELET VOLUME 9.5 FL (7.4-10.4); MONOCYTES # (AUTO) 0.5 X10'3 (0-0.9); NEUTROPHILS # (AUTO) 7.4 X10'3 (1.8-7.7); NEUTROPHILS % (AUTO) 82.6 % (42-75); PLATELET COUNT 235 X10'3 (140-440); RED BLOOD COUNT 4.44 X10'6 (4.70-6.10); RED CELL DISTRIBUTION WIDTH 13.7 % (11.5-14.5)
[2018-12-29 05:31] LABS: ALANINE AMINOTRANSFERASE 57 U/L (12-78); ALBUMIN 2.1 G/DL (3.4-5.0); ALBUMIN/GLOBULIN RATIO 0.5 (1.1-1.5); ALKALINE PHOSPHATASE 75 IU/L (46-116); ANION GAP 7 (8-16); ASPARTATE AMINO TRANSFERASE 37 U/L (10-37); BILIRUBIN,TOTAL 0.3 MG/DL (0.1-1.0); BLOOD UREA NITROGEN 10 MG/DL (7-18); BUN/CREATININE RATIO 8.8 (5.4-32.0); CALCIUM 7.9 MG/DL (8.5-10.1); CHLORIDE 105 MMOL/L (99-107); CREATININE 1.14 MG/DL (0.60-1.10); GLUCOSE 107 MG/DL (70-104); MAGNESIUM 1.8 MG/DL (1.5-2.4); PHOSPHORUS 3.1 MG/DL (2.3-4.5); POTASSIUM 3.8 MMOL/L (3.5-5.1); SODIUM 139 MMOL/L (135-145); TOTAL CARBON DIOXIDE 27.1 MMOL/L (24-32); eGFR 66 ML/MIN
--- NOTE | 2018-12-29 06:33 | NUR ---
Problems reprioritized. Patient report given, questions answered & plan of care reviewed with Julieta CARPENTER.
--- NOTE | 2018-12-29 06:43 | NUR ---
Patient in room [facility]. I have received report from JAYDEN Mcdonnell and had the opportunity to ask questions and assume patient care.
[2018-12-29 07:00] VITALS: BP 104/64
[2018-12-29] MEDS: apixaban 5mg tablet PO SCH (08:39)
[2018-12-29] MEDS: lactobacillus rhamnosus 10,000 MMU CELLS/CAPSULE PO SCH (08:39)
[2018-12-29] MEDS: magnesium hydroxide 30ml (MOM) UD suspension PO SCH (08:39)
[2018-12-29] MEDS ORDERED: APIX5TAB3 PO (11:07)
--- NOTE | 2018-12-29 13:38 | NUR ---
Patient stable and a Addendum: 12/29/18 at 1343 by Julieta Wu RN Patient stable and appropriate for discharge, IV taken out, education given, prescription called into preferred pharmacy, all belongings sent with patient, patient taken to lobby in a wheelchair to an awaiting car where a friend would be taking him home
== END 2018-12-29 12:46 | disposition home or self-care (01) | DRG 330 ==
LOC: ER 10:44 → ED HOLD 12:48 → EDBEDREQ 13:34 → SUR 3N 15:03
PROVIDERS: ADMIT Internal Medicine; ATTEND Internal Medicine
PROC: 0D9670Z Drainage of Stomach with Drainage Device, Via Natural or Artificial Opening (ICD-10-PCS; 2018-12-19)
PROC: 0DB80ZZ Excision of Small Intestine, Open Approach (ICD-10-PCS; principal; 2018-12-20 15:49)
DX: K56.609 Unspecified intestinal obstruction, unspecified as to partial versus complete obstruction (principal); K55.9 Vascular disorder of intestine, unspecified; N17.9 Acute kidney failure, unspecified; F17.210 Nicotine dependence, cigarettes, uncomplicated; K56.7 Ileus, unspecified; K57.90 Diverticulosis of intestine, part unspecified, without perforation or abscess without bleeding; E87.6 Hypokalemia; E66.9 Obesity, unspecified; E86.0 Dehydration; Z60.2 Problems related to living alone; E11.9 Type 2 diabetes mellitus without complications; Z79.01 Long term (current) use of anticoagulants; Z86.718 Personal history of other venous thrombosis and embolism; Z79.899 Other long term (current) drug therapy; Z68.28 Body mass index [BMI] 28.0-28.9, adult
CPT/HCPCS: 96361; 96374; 99285; Z7506; Z7508; 36415; 74018; 74176; 80047; 80048; 80053; 81003; 82948; 83036; 83605; 83735; 83880; 84100; 84132; 85025; 85610; 87070; 87075; 87081; 94640; 94760; A4215; A4338; A4618; A6253; A6407; A6449; A7000; C1758; C9399; G0378; J0330; J0694; J1100; J1170; J1580; J1650; J1815; J2001; J2250; J2270; J2405; J2543; J2704; J3010; J3480; J3490; J7030; J7120; Q9963; Q9967